=== PATIENT | male | born 1995 | race Caucasian/White ===

== ENCOUNTER 2020-03-27 12:33 | Emergency (ER) | payer OTHER ==
[2020-03-27] MEDS ORDERED: Lactated Ringers 1,000 ML IV SCH (12:45)
[2020-03-27] MEDS ORDERED: Metoclopramide 10 MG/2 ML SDV IVPUSH ONE ×2 (12:45→13:00)
[2020-03-27] MEDS ORDERED: HYDROmorphone 1 MG/ML Syringe IVPUSH ONE ×2 (12:45→13:00)
[2020-03-27] MEDS ORDERED: Dextrose 5%-0.9% NaCl 1,000 ML IV SCH (12:45)
[2020-03-27] MEDS ORDERED: HYDROmorphone 1 MG/ML Syringe ONE (12:49)
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
[2020-03-27] MEDS ORDERED: LORazepam 2 MG/ML SDV IV ONE (13:15)
[2020-03-27] MEDS ORDERED: fentaNYL 100 MCG/2 ML SDV IVPUSH ONE (13:16)
[2020-03-27] MEDS ORDERED: fentaNYL 100 MCG/2 ML SDV ONE (13:16)
[2020-03-27] MEDS ORDERED: Lidocaine 2% Jelly 10 ML Urojet MUCMEM ONE (13:33)
--- NOTE | 2020-03-27 13:42 | CT ---
CT cervical spine Technique: Multiple axial sections were obtained from above C1 inferiorly to the bottom of T2. Reconstructed sagittal and coronal images were reviewed. Comparison: No prior cervical spine imaging is available. Findings: Vertebral body heights and disc spaces are maintained. No bony central or bony neural foraminal stenosis is seen. No fracture is appreciated. No abnormal subluxation is seen. Impression: 1. Nothing acute is appreciated on CT study of the cervical spine. Diagnostic code #1 Study was dictated in MDT
--- NOTE | 2020-03-27 13:48 | CT ---
Head CT Technique: Multiple axial sections through the brain were obtained. Intravenous contrast was not utilized. Comparison: No prior intracranial imaging is available. Findings: Ventricles along with basal cisterns and sulci over convexities are within normal limits for the patient's age. No abnormal parenchymal densities are seen. No evidence of intracranial hemorrhage. No midline shift or mass effect is seen. Visualized paranasal sinuses and mastoid sinuses are clear. No acute calvarial abnormality is appreciated. Impression: 1. Nothing acute is appreciated on noncontrast head CT exam. Diagnostic code #1 Study was dictated in MDT
--- NOTE | 2020-03-27 13:48 | CT ---
CT chest Technique: Multiple axial sections were obtained from above the lung apices inferiorly through the lung bases. Intravenous contrast was utilized. Findings: Aorta shows no aneurysm. No mediastinal hematoma is seen. No pericardial thickening is seen. Lungs show very slight areas of parenchymal density within the right middle lobe and right upper lung possibly due to minimal areas of pulmonary contusion. Small right apical pneumothorax is noted. No additional parenchymal densities are seen. No pleural effusions are seen. Bone window settings were reviewed. Reconstructed sagittal and images of the sternum appear intact. Nondisplaced fracture is noted on the sagittal view within T12 on the left side. Impression: 1. Small apical pneumothorax on the right side. 2. Very slight areas of parenchymal density within the right upper lung and right middle lobe most likely representing minimal areas of pulmonary contusion. 3. Nondisplaced fracture within the left T12 rib. Diagnostic code #3 Study was dictated in [facility] CT abdomen and pelvis Technique: Multiple axial sections were obtained from above the dome of the diaphragm inferiorly through the pubic symphysis. Intravenous contrast was utilized. No oral contrast has been given. Findings: Liver contains no focal parenchymal abnormality. Gallbladder contains no calcified gallstones. Low density is noted within the spleen felt compatible with grade 1 splenic injury. Cyst is noted within the upper right kidney measuring about 2.5 cm in size. Small cyst which is less than the 1 cm seen within the left kidney. Adrenal glands show no nodule. Pancreas is within normal limits. Aorta shows no aneurysm. No retroperitoneal adenopathy is seen. No pelvic mass or adenopathy is seen. No free fluid is appreciated. Severe fracture is noted of L2 which will be described on lumbar spine study. Impression: 1. Fracture within L2 which will be described on lumbar spine study. 2. Grade 1 splenic injury. 3. Incidental renal cyst. No other acute abnormality is appreciated. Diagnostic code #3 Study was dictated in [facility]T
--- NOTE | 2020-03-27 13:55 | CT ---
CT lumbar spine Technique: Multiple axial sections through the lumbar spine were obtained. Reconstructed coronal and sagittal images were obtained. Findings: Fracture is identified within the inferior and posterior corner of T12. Slight retrolisthesis is seen of the fragment by about 4.8 mm. Both transverse processes are fractured at T1. Fracture is identified within both pedicles at L1. There is vertical splitting of the vertebral body of L1. Greatest vertebral body displacement is 8.2 mm which is inferiorly at the lower end plate. Fracture is noted within the lamina slightly to the left of midline at this level. Burst fracture is identified within L2. Significant retrolisthesis fragments are seen causing severe compromise upon the central canal. Fractures are seen at the base of both pedicles. Fracture involves both transverse processes. Fracture noted on the right side transverse process of L3. No additional fracture is appreciated. Impression: 1. Fractures within T12, L1, L2 and L3. L2 fracture is the most severe being a burst fracture with severe retrolisthesis end of the central canal causing severe compromise of the central canal. Diagnostic code #5 Study was dictated in [facility]T
--- NOTE | 2020-03-27 13:58 | CT ---
CT thoracic spine Technique: Multiple axial sections through the thoracic spine were obtained. Reconstructed coronal and sagittal images were obtained. Findings: Fracture is identified within the inferior posterior corner of the T12 vertebral body showing mild retrolisthesis within indentation upon the anterior thecal sac. No additional fracture is seen within the thoracic spine. No abnormal subluxation is seen of the thoracic spine. No bony central or bony neural foraminal stenosis is seen. Impression: 1. Fracture is identified within the inferior posterior corner of T12 with mild retrolisthesis of the fragment into the central canal causing mild indentation upon the thecal sac. 2. No additional abnormality is seen within the thoracic spine. Diagnostic code #3 Study was dictated in [facility]T
--- NOTE | 2020-03-27 13:59 | CR ---
Left tibia and fibula: AP and lateral views of the left tibia and fibula were obtained. No discrete fracture or other bony abnormality is appreciated. Impression: 1. No abnormality is appreciated on left tibia and fibula study. Diagnostic code #1 Study was dictated in [facility]T
--- NOTE | 2020-03-27 14:05 | CR ---
Left femur: 2 views of the left femur were obtained. Displaced and foreshortened femoral shaft fracture is seen. Diffuse soft tissue swelling is noted. Impression: 1. Displaced and foreshortened femoral shaft fracture. 2. Diffuse soft tissue swelling. Diagnostic code #5 Study was dictated in MDT
== END 2020-03-27 14:57 ==
LOC: JD.ED 12:33
DX: S32.021A Stable burst fracture of second lumbar vertebra, initial encounter for closed fracture (principal); S32.012A Unstable burst fracture of first lumbar vertebra, initial encounter for closed fracture; S72.322A Displaced transverse fracture of shaft of left femur, initial encounter for closed fracture; Z20.828 Contact with and (suspected) exposure to other viral communicable diseases; V29.9XXA Motorcycle rider (driver) (passenger) injured in unspecified traffic accident, initial encounter
CPT/HCPCS: 36415; 51702; 70450; 71260; 72125; 72128; 72131; 73552; 73590; 74177; 80053; 80307; 81001; 82550; 83690; 85025; 86850; 86900; 86901; 87635; 96374; 96375; 96376; 99285; J1170; J2060; J3010; J7120; U0002